=== PATIENT | female | born 1965 | race Hispanic/Latino ===

== ENCOUNTER → 2021-02-20 | Outpatient (CLI) | payer BC, OTHER ==
[~2021-02-20] MED LIST: COVID-19 VACC, MRNA(MODERNA)/PF 100 MCG/0.5 ML VIAL IM ONE
== END | disposition home or self-care (01) ==
LOC: VACCPMC 13:52
DX: Z23 Encounter for immunization (principal); Z20.822 Contact with and (suspected) exposure to COVID-19
CPT/HCPCS: 91301

== ENCOUNTER → 2021-03-20 | Outpatient (CLI) | payer BC, OTHER | END | disposition home or self-care (01) | LOC: EDSTATUS 11:48 → VACCPMC 11:50 | DX: Z23 Encounter for immunization (principal); Z20.822 Contact with and (suspected) exposure to COVID-19 | CPT/HCPCS: 91301 ==